=== PATIENT | female | born 2000 | race Caucasian/White ===

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

== ENCOUNTER → 2020-08-20 | Outpatient (CLI) | payer OTHER ==
[2020-08-20 15:04] LABS: EOS % 0.4 % (0.1-4.0); HEMATOCRIT 41.4 % (35.0-45.0); HEMOGLOBIN 13.2 g/dL (12.0-15.0); LYMPH# 1.9 (1.20-3.40); MEAN CELL VOLUME 81 fl (78-95); MEAN CORPUSCULAR HEMOGLOBIN 26 pg (26-32); MEAN CORPUSCULAR HGB CONC 32 g/dL (33-37); MEAN PLATELET VOLUME 10.7 fl (7.4-10.4); MONO # 0.9 (0.10-0.60); NEU # 5.5 (1.40-6.50); PLATELET COUNT 317 K/mm3 (130-400); RED BLOOD COUNT 5.13 M/mm3 (4.10-5.30); RED CELL DISTRIBUTION WIDTH 14.8 % (11.5-14.5); WHITE BLOOD COUNT 8.5 K/mm3 (4.8-10.8)
[2020-08-20 22:06] LABS: FOLLICLE STIMULATING HORMONE 1.8 mIU/mL (()); LUTENIZING HORMONE 3.1 mIU/mL (()); PROGESTERONE 6.4 ng/mL (())
== END ==
LOC: LAB 14:50
PROVIDERS: Family Medicine
DX: N92.1 Excessive and frequent menstruation with irregular cycle (principal); R53.83 Other fatigue

== ENCOUNTER → 2021-05-02 | Outpatient (CLI) | payer OTHER | LOC: LAB 14:28 | DX: Z20.822 Contact with and (suspected) exposure to COVID-19 (principal) ==

== ENCOUNTER → 2021-08-20 | Outpatient (CLI) | payer OTHER | LOC: LAB 12:18 | DX: U07.1 COVID-19 (principal) ==

== ENCOUNTER → 2022-01-03 | Outpatient (CLI) | payer OTHER | LOC: LAB 18:19 | DX: R11.0 Nausea (principal); R73.9 Hyperglycemia, unspecified; Z20.822 Contact with and (suspected) exposure to COVID-19 ==

== ENCOUNTER → 2023-11-12 | Outpatient (REF) | payer BC | LOC: LAB 12:36 | DX: J02.9 Acute pharyngitis, unspecified (principal) ==